=== PATIENT | female | born 1935 | race Caucasian/White ===

== ENCOUNTER 2020-05-11 12:58 | Outpatient (REF) | payer MEDICARE, SELFPAY ==
[2020-05-11 14:13] LABS: Hematocrit 38.7 % (37-47); Hemoglobin 13.2 g/dl (12.0-16.0); Mean Corpuscular HGB Conc 34.1 g/dl (31.0-35.0); Mean Corpuscular Volume 93.7 fL (80-98); Mean Platelet Volume 9.3 fL (9.4-12.3); Platelet Count 245 X10*3/uL (160-400); Red Blood Count 4.13 X10*6/uL (4.20-5.50); Red Cell Distribution Width 11.9 % (11.0-16.0); White Blood Count 6.6 X10*3/uL (4.8-10.8)
[2020-05-11 14:57] LABS: Alanine Aminotransferase 17 U/L (0-31); Albumin Level 4.2 g/dL (3.5-5.0); Alkaline Phosphatase 89 U/L (39-117); Anion Gap 17 (12-20); Aspartate Amino Transferase 21 U/L (5-31); Bilirubin Total 0.3 mg/dL (0.0-1.0); Blood Urea Nitrogen 28 mg/dL (9-16); Calcium 10.1 mg/dL (8.4-10.2); Carbon Dioxide 29 mmol/L (22-29); Chloride 99 mmol/L (96-108); Estimated Glomerular Filt Rate 35; Glucose Random 126 mg/dL (60-115); Potassium 4.1 mmol/L (3.3-5.1); Sodium 141 mmol/L (135-145); Total Protein 7.5 g/dL (6.5-8.0)
[2020-05-11 14:58] LABS: TSH reflex Free T4 0.11 uIU/mL (0.32-4.0)
== END 2020-05-11 12:59 | disposition home or self-care (01) ==
LOC: HO.HMGCLDS 12:58
PROVIDERS: PCP Internal Medicine; Visit Provider Internal Medicine
DX: E78.5 Hyperlipidemia, unspecified (principal); I10 Essential (primary) hypertension
CPT/HCPCS: 36415; 80053; 84439; 84443; 85027

== ENCOUNTER → 2023-11-03 10:18 | Outpatient (BNVA) | payer OTHER, SELFPAY | PROVIDERS: PCP Internal Medicine; Visit Provider Internal Medicine ==

== ENCOUNTER → 2024-04-11 09:44 | Outpatient (BNVA) | payer OTHER, SELFPAY | PROVIDERS: PCP Internal Medicine; Visit Provider Internal Medicine | DX: J40 Bronchitis, not specified as acute or chronic (principal); I10 Essential (primary) hypertension; I48.91 Unspecified atrial fibrillation | CPT/HCPCS: 99212 ==

== ENCOUNTER 2024-08-30 06:04 | Outpatient (REF) | payer OTHER, SELFPAY ==
[2024-08-30 10:13] LABS: MANUAL DIFF FLAG NO
[2024-08-30 10:23] LABS: Hemoglobin A1C 125.6126 umol/L; Total Hemoglobin (HGBA1C) 3217.6115 umol/L
[2024-08-30 10:41] LABS: Hematocrit 35.9 % (37.0-47.0); Hemoglobin 12.1 g/dl (12.0-16.0); Imm Gran Abs Auto 0.01 X10*3/uL (0.00-0.03); Imm Gran Pct Auto 0.2 % (0.0-0.4); Lymphocytes Absolute Auto 1.5 X10*3/uL (1.2-4.9); Mean Corpuscular HGB Conc 33.7 g/dl (31.0-35.0); Mean Corpuscular Hemoglobin 31.5 pg (27.0-33.0); Mean Corpuscular Volume 93.5 fL (80.0-98.0); NRBC Abs Auto 0.000 X10*3/uL (0.0-0.012); NRBC Pct Auto 0.0 /100WBC (0.0-0.2); Platelet Count 213 X10*3/uL (160-400); Red Blood Count 3.84 X10*6/uL (4.20-5.50); White Blood Count 4.9 X10*3/uL (4.8-10.8)
[2024-08-30 11:02] LABS: Alanine Aminotransferase 13 U/L (0-31); Albumin Level 3.8 g/dL (3.5-5.0); Alkaline Phosphatase 71 U/L (39-117); Anion Gap 14 (12-20); Aspartate Amino Transferase 24 U/L (5-31); Blood Urea Nitrogen 30 mg/dL (9-16); Calcium 9.5 mg/dL (8.4-10.2); Carbon Dioxide 27 mmol/L (22-29); Chloride 106 mmol/L (96-108); Estimated Glomerular Filt Rate 38; Potassium 4.1 mmol/L (3.3-5.1); Sodium 143 mmol/L (135-145); Total Protein 6.8 g/dL (6.5-8.0)
[2024-08-30 11:34] LABS: Free T4 (Free Thyroxine) 1.10 ng/dL (0.71-1.85)
== END 2024-08-30 06:05 | disposition home or self-care (01) ==
LOC: HO.HMGCLDS 06:04
PROVIDERS: PCP Internal Medicine; Visit Provider Internal Medicine
DX: Z00.00 Encounter for general adult medical examination without abnormal findings (principal); R73.9 Hyperglycemia, unspecified; I48.91 Unspecified atrial fibrillation; I10 Essential (primary) hypertension
CPT/HCPCS: 36415; 80053; 83036; 84439; 84443; 84481; 85025

== ENCOUNTER 2024-08-31 08:52 | Outpatient (AMB) | payer MEDICARE, SELFPAY ==
--- OUTSIDE RECORDS SUMMARY | 2024-06-08 10:00 | XMS_ITS ---
Author Organization [facility] Address [address] [place] [address] Care Team Providers Care Tool Builder Name Role Phone Kamryn Dominguez MD Primary Care Provider Michelle Fournier [phone] Allergies Allergen (clinical drug ingredient) Drug/Non Drug [...] Active Encounters Encounter Location Date Provider Diagnosis [facility] [address] [place] [address] 06/08/2024 Michelle Everett Plan Of Treatment No Information Progress Notes * Sarina DONALDB:1935 ([age] yo F)Acc No.[id number]:06/08/2024 Progress Note Patient: Eliane MACARIO Provider: Ellis Everett DPM :1935 A ge:88 Y S ex:Female Date:06/08/2024 Address:[address] [place] [address] , [place] , [id number] Pcp:Kamryn Dmoinguez MD Subjective: * Chief Complaints: * * [...] Pending * Provider: Ellis Everett DPM Date: 0 06/08/2024 Generated for Олег edwards/Brad/Avilaitting on: 0 08/31/2024 09:05 AM EDT
[2024-08-31 08:54] VITALS: BP 120/74; PULSE 50; RESP 18; TEMP 36.8; O2SAT 99; BMI 33.6
--- NOTE | 2024-08-31 08:54 | A.OFFPC_ITS ---
Vital Signs 08/31/24 08:54 Height 5 ft Weight 172 lb BMI 33.6 BP 120/74 Blood Pressure Location Rt brachial Position Sitting Respiration 18 Pulse 50 Pulse Source Pulse Oximeter Temp 98.2 F Temp Source Oral Pulse Oximetry (%) 99 Oxygen Delivery Method Room Air Intake Visit Reasons: 6 months f/up Intake Note: Pt is here today for 6 months follow up visit. Allergies aspirin Allergy (Unknown, Verified 04/18/24 16:15) Facial Swelling Medication List - Last Reconciled 08/31/24 by Kamryn Dominguez MD Eliquis (apixaban) 2.5 mg PO BID NS estradiol 0.01%(0.1mg/gram) pea size to urethra vaginally daily; glucosamine HCl 1,000 mg PO DAILY hydrochlorothiazide 25 mg PO DAILY irbesartan 300 mg PO DAILY meclizine 25 mg PO BID metoprolol succinate ER 50 mg PO DAILY oxybutynin chloride ER 5 mg PO DAILY Tobacco use date assessed: 08/31/24 Fall risk assessment: No Falls in past year Last assessed Fall Risk: 08/31/24 Dental Screening Dental Screen Date: 02/23/24 HPI 6 months f/up HPI Details Patient presents for the follow-up on chronic kidney disease stage 3, hypertension paroxysmal AFib anticoagulated on Eliquis. Patient complains of the swelling in the right submandibular region for few weeks. She denies any pain fever chills difficulty swallowing. [facility] Medical History (Updated 08/31/24 @ 09:31 by Kamryn Dominguez MD) A-fib Bilateral hand pain Dysuria CKD (chronic kidney disease) stage 3, GFR 30-59 ml/min Bilateral carotid bruits Subconjunctival bleed Vertigo HTN (hypertension) Osteoarthritis Hyperlipidemia Vitamin D deficiency Hyperparathyroidism Goiter Surgical History H/O parathyroidectomy History of knee replacement Family History Father No problems noted. Mother No problems noted. Social History Housing: House Alcohol intake: never Patient Tobacco Use Status: Never used Tobacco e-Cigarette/Vaping Use: Never Used service: No Current occupational status: retired Cognitive needs: No Hearing needs: No Vision needs: Yes Questionnaire PHQ-9 Over the last 2 weeks, how often have you been bothered by any of the following problems? 1. Little interest or pleasure in doing things: not at all 2. Feeling down, depressed, or hopeless: not at all 3. Trouble falling or staying asleep, or sleeping too much: not at all 4. Feeling tired or having little energy: not at all 5. Poor appetite or overeating: not at all 6. Feeling bad about yourself - or that you are a failure or have let yourself or your family down: not at all 7. Trouble concentrating on things, such as reading the newspaper or watching television: not at all 8. Moving or speaking so slowly that other people could have noticed. Or the opposite - being so fidgety or restless that you have been moving around a lot more than usual: not at all 9. Thoughts that you would be better off or of hurting yourself in some way: not at all Total score: 0 Depression Screening Interpretation: Negative Depression Screening Done: Yes 85341 - PHQ-9 Billing: Yes Source: Developed by Drs. Raciel Cox, Bev Guevara, Kareem Carter and colleagues, with an educational uyen from [employer]. Thrive Questionnaire Date Thrive assessed: 08/31/24 I am a: Patient What is your living situation today?: I have a steady place to live Within the past 12 months, did the food you bought not last and you didn't have the money to get more?: Never true Within the past 12 months, did you worry whether your food would run out before you got money to buy more?: Never true Do you have trouble paying for medicines?: No Do you have trouble getting transportation to medical appointments?: No Do you have trouble paying your heating and electricity bill?: No Do you have trouble taking care of your child, family member or friend?: No Do you have trouble with day-to-day activities such as bathing, preparing meals, shopping, managing finances, etc.?: No Are you currently unemployed and looking for a job?: I choose not to answer this question Are you interested in more education?: I choose not to answer this question Please select the resources that you would like help with: None Currently or been in a relationship where the following occur: I choose not to answer THRIVE Score: 0 AUDIT C Alcohol Use Questionnaire (AUDIT-C) 1. How often do you have a drink containing alcohol?: Never 3. How often do you have six or more drinks on one occasion?: Never Total Score: 0 SCHUYLER-7 AMB Questionnaire SCHUYLER-7 Date SCHUYLER - 7 assessed: 02/23/24 Source: Developed by Drs. Raciel Cox, Bev Guevara, Kareem Carter and colleagues, with an educational uyen from [employer]. Review of Systems Const All systems reviewed & are unremarkable except as noted in HPI and below Eyes Reports no additional complaints ENT Reports no additional complaints Card Reports no additional complaints Resp Reports no additional complaints GI Reports no additional complaints Reports no additional complaints Physical exam (Primary Care) Vital Signs: Last Vital Signs Temp 98.2 F 08/31/24 08:54 Pulse 50 08/31/24 08:54 Resp 18 08/31/24 08:54 BP 120/74 08/31/24 08:54 Pulse Ox 99 08/31/24 08:54 Oxygen Delivery Method Room Air 08/31/24 08:54 BMI result Body Mass Index 33.6 Tobacco/Smoking Status: Tobacco use Status Tobacco use date assessed 08/31/24 08/31/24 09:11 Patient Tobacco Use Status Never used Tobacco 08/31/24 08:54 e-Cigarette/Vaping Use Never Used 08/31/24 08:54 PHQ-9: PHQ-9 Score PHQ-9: Total score 0 08/31/24 09:11 Depression Screening Interpretation: Negative Thrive Assessment: Date of Thrive Assessment Date Thrive assessed 08/31/24 08/31/24 08:54 Currently or been in a relationship where the following occur: I choose not to answer Const General: no acute distress HENMT Head: Yes normal to inspection Throat: Yes posterior oropharynx normal Eyes General: appearance normal, both eyes and all related structures Neck Other: There is a palpable fullness in the right submandibular region nontender no erythema warmth Neck: Yes supple Resp Effort & Inspection: normal respiratory effort Auscultation: clear to auscultation bilaterally Cardio Rate: bradycardic Rhythm: regular rhythm Heart sounds: S1 normal heart sound present and S2 normal heart sound present GI Inspection: Yes normal to inspection Palpation (GI): Soft to palpation Percussion: Yes normal to percussion Auscultation: normal bowel sounds Coding Level of Care Code Est Pt Level 4 (22895) Complex EM visit Add On G2211 Diagnoses Cervical lymphadenopathy R59.0 A-fib I48.91 HTN (hypertension) I10 Hyperlipidemia E78.5 CKD (chronic kidney disease) stage 3, GFR 30-59 ml/min N18.30 Additional Codes PHQ-9 - 55942 - PHQ-9 Billing: Yes ([id number]) Assessment & Plan Assessment & Plan (1) Cervical lymphadenopathy: Code(s): R59.0 - Localized enlarged lymph nodes Category: Medical Plan: Obtain soft tissue ultrasound to evaluate (2) A-fib: Comment: paroxysmal ,Holter negative and ECHO EF 56%, mild 10/2023 Code(s): I48.91 - Unspecified atrial fibrillation Category: Medical Plan: EKG showed sinus bradycardia at 47 poor R progression in V2 through V4 no ST-T changes. Decrease metoprolol to 25 mg follow-up in 1 week, continue Eliquis for anticoagulation (3) HTN (hypertension): Code(s): I10 - Essential (primary) hypertension Category: Medical Plan: For the episodes of lightheadedness and low blood pressure irbesartan will be decreased to 150 mg a day. (4) Hyperlipidemia: Code(s): E78.5 - Hyperlipidemia, unspecified Category: Medical Plan: Continue statin (5) CKD (chronic kidney disease) stage 3, GFR 30-59 ml/min: Code(s): N18.30 - Chronic kidney disease, stage 3 unspecified Category: Medical Plan: Avoid nephrotoxins monitor renal function Orders: Orders US soft tiss head and/or neck Today R59.0 - Localized enlarged lymph nodes AMB EKG-In Office Today I10 - Essential (primary) hypertension, I48.91 - Unspecified atrial fibrillation Medications: New irbesartan 150 mg PO DAILY 90 tabs 3RF Refilled estradiol 0.01%(0.1mg/gram) pea size to urethra vaginally daily; 42.5 grams 3RF Eliquis (apixaban) 2.5 mg PO BID 180 tabs 3RF NS metoprolol succinate ER 50 mg PO DAILY 90 tabs 3RF Discontinued azithromycin Discontinued Reason: Patient Completed Course For 250 mg dose pack: take 500 mg today (day 1), then 250 mg for 4 days (days 2-5) PO 6 tabs 0RF
--- OUTSIDE RECORDS SUMMARY | 2024-08-31 09:05 | XMS_ITS | Clinical Summary ---
Author Organization [employer] [facility] Address [address] [facility] [address] [place] [address] Care Team Providers Care Track Hoe Operator Name Role Phone Unavailable Primary Care Provider Unavailabl e Allergies Active Allergy Reactions Criticality Noted Date Comments Aspirin 06/01/2024 Medications oxybutynin XL (Ditropan-XL) 5 MG 24 hr tablet Take 1 tablet by mouth Once per day. 05/23/2024 Active metoprolol succinate XL (Toprol-XL) 100 MG 24 hr tablet Take 1 tablet by mouth Once per day. 11/21/2023 Active Eliquis 2.5 MG tablet Take 1 tablet by mouth 2 times daily. 02/23/2024 Active glucosamine-yamini droitin 500-400 MG tablet Take 1 tablet by mouth 3 times daily. Active calcium citrate (Calcitrate) 950 (200 Ca) MG tablet Take 950 mg by mouth Once per day. Active magnesium lactate CR (Magtab) 84 MG (7MEQ) ER tablet Take 84 mg by mouth Once per day. Active omega-3 (FISH OIL) 300 MG capsule Take by mouth Once per day. Active Encounters Date Type Department Care Team Description 07/20/2024 Telephone [facility] [address] [place] [phone] Laura Moore 06/01/2024 1:00 PM EDT Office Visit [facility] [address] [place] [phone] Laura Moore Periodontal disease (Primary Dx); Dental caries from Last 3 Months Social History Tobacco Use Types Packs/Day Years Used Date Smoking Tobacco: Former Cigarettes Smokeless Tobacco: Never Tobacco Cessation:Counseling Given: Not Answered Comments Unknown Sex and Gender Information Value Date Recorded Sex Assigned at Female 04/26/2024 8:21 AM EDT Legal Sex Female 8:17 AM EDT Gender Identity Female 04/26/2024 8:21 AM EDT Sexual Orientation Choose not to disclose 2024 8:21 AM EDT Last Filed Vital Signs Vital Sign Reading Time Taken Comments Blood Pressure 116/50 06/01/2024 1:10 PM EDT Pulse 58 06/01/2024 1:10 PM EDT Temperature - - Respiratory Rate - - Oxygen Saturation - - Inhaled Oxygen Concentration - - Weight - - Height - - Body Mass Index - - Plan of Treatment Upcoming Encounters Date Type Department Care Team (Late st Contact Info) Description 10/06/2024 2:00 PM EDT Office Visit [facility] [address] [place] [phone] Laura Moore [address] [place] [phone] 10/11/2024 9:00 AM EDT Office Visit [facility] [address] [place] [phone] Laura Moore [address] [place] [phone] Health Maintenance Due Date Last Done Comments Dental Oral Exam 1935 Depression Screening 1935 SDOH Screening 1935 Alcohol/Substance Use Screening 1946 Zoster Vaccines (1 of 2) 1984 Pneumococcal Vaccine: 50+ Years (2 of 2 - PPSV23) 01/03/2018 01/03/2017 COVID-19 Vaccine ( season) 2024 12/02/2023, 06/03/2021, 11/16/2020, Additional history exists Influenza Vaccine (#1) 2024 , 10/30/2022, 12/04/2021, Additional history exists Dental Prophylaxis 12/02/2024 06/01/2024 Tobacco Screening 06/01/2025 06/01/2024 Dental X-Ray: Bitewings 06/02/2025 06/01/2024 DTaP/Tdap/Td Vaccines (2 - Td or Tdap) 01/03/2027 01/03/2017 Dental X-Ray: Full Mouth 06/03/2027 06/01/2024 RSV Patients and Patients Aged 60 years or older Completed 10/30/2022 HIB Vaccines Aged Out No longer eligi ble based on patient's age to complete this topic HPV Vaccines Aged Out No longer eligi ble based on patient's age to complete this topic Hepatitis A Vaccines Aged Out No long er eligible based on patient's age to complete this topic Hepatitis B Vaccines Aged Out No long er eligible based on patient's age to complete this topic IPV Vaccines Aged Out No longer eligi ble based on patient's age to complete this topic Meningococcal B Vaccine Aged Out No l onger eligible based on patient's age to complete this topic Meningococcal Vaccine Aged Out No renetta trevor eligible based on patient's age to complete this topic RSV under 20 months Aged Out No longe r eligible based on patient's age to complete this topic Rotavirus Vaccines Aged Out No longer eligible based on patient's age to complete this topic Procedures Procedure Name Priority Date/Time Associated Diagnosis Comments PROPHYLAXIS - ADULT Routine 06/01/2024 1 :00 PM EDT INTRAORAL - COMPLETE SERIES OF RADIOGRAPHIC IMAGES Routine 06/01/2024 1:00 PM EDT 2 ROOT CANAL Routine 06/01/2024 12:00 AM EDT 5 ROOT CANAL Routine 06/01/2024 12:00 AM EDT 12 DO AMALGAM FILLING Routine 06/01/2024 12:00 AM EDT 19 PONTIC - CAST PREDOMINANTLY BASE METAL Routine 06/01/2024 12:00 AM EDT 18 ABUTMENT SUPPORTED CAST METAL CROWN (PREDOMINANTLY BASE METAL) Routine 06/01/2024 12:00 AM EDT 13 PFM CROWN Routine 06/01/2024 12:00 AM EDT 4 PONTIC - PORCELAIN FUSED TO PREDOMINANTLY BASE METAL Routine 06/01/2024 12:00 AM EDT 3 PONTIC - PORCELAIN FUSED TO PREDOMINANTLY BASE METAL Routine 06/01/2024 12:00 AM EDT 6 ABUTMENT SUPPORTED CAST METAL CROWN (PREDOMINANTLY BASE METAL) Routine 06/01/2024 12:00 AM EDT 5 ABUTMENT SUPPORTED CAST METAL CROWN (PREDOMINANTLY BASE METAL) Routine 06/01/2024 12:00 AM EDT 2 ABUTMENT SUPPORTED CAST METAL CROWN (PREDOMINANTLY BASE METAL) Routine 06/01/2024 12:00 AM EDT 32 EXTRACTION Routine 06/01/2024 12:00 AM EDT 31 EXTRACTION Routine 06/01/2024 12:00 AM EDT 30 EXTRACTION Routine 06/01/2024 12:00 AM EDT 29 EXTRACTION Routine 06/01/2024 12:00 AM EDT 21 EXTRACTION Routine 06/01/2024 12:00 AM EDT 20 EXTRACTION Routine 06/01/2024 12:00 AM EDT 19 EXTRACTION Routine 06/01/2024 12:00 AM EDT 17 EXTRACTION Routine 06/01/2024 12:00 AM EDT 16 EXTRACTION Routine 06/01/2024 12:00 AM EDT 15 EXTRACTION Routine 06/01/2024 12:00 AM EDT 14 EXTRACTION Routine 06/01/2024 12:00 AM EDT 3 EXTRACTION Routine 06/01/2024 12:00 AM EDT 4 EXTRACTION Routine 06/01/2024 12:00 AM EDT 1 EXTRACTION Routine 06/01/2024 12:00 AM EDT from Last 3 Months Insurance DENTAL - [facility]
== END 2024-08-31 09:47 | disposition home or self-care (01) ==
PROVIDERS: PCP Internal Medicine; Visit Provider Internal Medicine
DX: R59.0 Localized enlarged lymph nodes (principal); I48.91 Unspecified atrial fibrillation; I10 Essential (primary) hypertension; E78.5 Hyperlipidemia, unspecified; N18.30 Chronic kidney disease, stage 3 unspecified

== ENCOUNTER → 2024-08-31 08:52 | Outpatient (BNVA) | payer MEDICARE, SELFPAY | PROVIDERS: PCP Internal Medicine; Visit Provider Internal Medicine | DX: I12.9 Hypertensive chronic kidney disease with stage 1 through stage 4 chronic kidney disease, or unspecified chronic kidney disease (principal); I48.0 Paroxysmal atrial fibrillation; N18.30 Chronic kidney disease, stage 3 unspecified; R59.0 Localized enlarged lymph nodes; E78.5 Hyperlipidemia, unspecified; Z79.01 Long term (current) use of anticoagulants | CPT/HCPCS: 96127; 99212 ==

== ENCOUNTER 2024-10-21 13:53 | Outpatient (REF) | payer OTHER, SELFPAY ==
--- OUTSIDE RECORDS SUMMARY | 2024-04-29 08:00 | XMS_ITS ---
Author Organization [facility] Address [address] [place] [address] Care Team Providers Care Steamer Operator Name Role Phone Alberto RAMOS, Kamryn Primary Care Provider Unavaila Michelle Parker Unavailable [phone] Mike Fierro [phone] Encounters Encounter Location Date Provider Diagnosis [facility] [address] [place] [address] 04/29/2024 Mike Fieror Plan Of Treatment No Information Progress Notes * Sarina MOONB:1935 ([age] yo F)Acc No.[id number]:04/29/2024 Progress Note Patient: Eliane MACARIO Provider: Markus Fierro DPM :1935 A ge:88 Y S ex:Female Date:04/29/2024 Address:[address] [place] [address] [id number] Pcp:Kamryn Dominguez MD Subjective: * Chief Complaints: * * Medical History: Objective: * Vitals: Assessment: Plan: * Treatment: * Images: * The named appointment provid er may or may not be the originator of this progress note, and it is not deemed complete until electronically signed by the appointment provider. Sign off status: Pending * Provider: Markus Fierro DPM Date: 0 04/29/2024 Generated for Олег edwards/Brad/eTransmitting on: 0 10/21/2024 02:23 PM EDT
--- OUTSIDE RECORDS SUMMARY | 2024-05-10 05:00 | XMS_ITS ---
Author Organization [facility] Address [address] [place] [address] Care Team Providers Care Bowling Ball Marker Name Role Phone Alberto RAMOS, Kamryn Primary Care Provider UnavailMichelle Magaña Unavailable [phone] Nidia Maravilla Unavailable [phone] Lama Encounters Encounter Location Date Provider Diagnosis [facility] [address] [place] [address] 05/10/2024 Nidia Maravilla Plan Of Treatment No Information Progress Notes * Sarina MOONB:1935 ([age] yo F)Acc No.[id number]:05/10/2024 Progress Note Patient: Eliane MACARIO Provider: Joey Maravilla DPM :1935 A ge:88 Y S ex:Female Date:05/10/2024 Address:[address] [place] [address] [place] Pcp:Kamryn Dominguez MD Subjective: * Chief Complaints: * [address] Lama. * Medical History: Objective: * Vitals: Assessment: Plan: * Treatment: * Images: * The named appointment provid er may or may not be the originator of this progress note, and it is not deemed complete until electronically signed by the appointment provider. Sign off status: Pending * Provider: Joey Maravilla DPM Date: 0 05/10/2024 Generated for Олег edwards/Brad/Sriramsmitting on: 0 10/21/2024 02:23 PM EDT
--- OUTSIDE RECORDS SUMMARY | 2024-06-08 10:00 | XMS_ITS ---
Author Organization [facility] Address [address] [place] [address] Care Team Providers Care Contracting Analyst Name Role Phone Kamryn Dominguez MD Primary Care Provider Michelle Fournier [phone] Allergies Allergen (clinical drug ingredient) Drug/Non Drug Allergy documented on EMR Reaction Allergy Type Onset Date Status aspirin Aspirin Unknown Drug Allergy Active Medications Medication SIG (Take, Route, Frequency, Duration) Notes Start Date End Date Status oxyBUTYnin Chloride ER 5 MG TK 1 T PO QD Oral; Duration: 90 Active Zinc Active Doxycycline Monohydrate 100 MG 1 capsule Orally Once a day; Duration: 10 days Active Calcium Active Centrum Adults Activ e Omeprazole Active Metoprolol Succinate 100 MG 1 capsule Or ally Once a day; Duration: 30 day(s) Active Magnesium Active Glucosource Lancets Active Meloxicam 7.5 MG 1 tablet Orally Once a day; Duration: 30 day(s) Active Fish Oil Active Encounters Encounter Location Date Provider Diagnosis [facility] [address] [place] [address] 06/08/2024 Michelle Everett Plan Of Treatment No Information Progress Notes * Sarina DONALDB:1935 ([age] yo F)Acc No.[id number]:06/08/2024 Progress Note Patient: Eliane MACARIO Provider: Ellis Everett DPM :1935 A ge:88 Y S ex:Female Date:06/08/2024 Address:[address] [place] [address] , [place] , [id number] Pcp:Kamryn Dominguez MD Subjective: * Chief Complaints: * * Medical History: A rthritis, High blood pressure, Bone implants/screws. * Medications: T aking Calcium , Taking Centrum Adults , Taking Fish Oil , Taking Glucosource Lancets , Taking Meloxicam 7.5 MG Tablet 1 tablet Orally Once a day , Taking Metoprolol Succinate 100 MG Capsule ER 24 Hour Sprinkle 1 capsule Orally Once a day , Taking Magnesium , Taking Omeprazole , Taking oxyBUTYnin Chloride ER 5 MG Tablet Extended Release 24 Hour TK 1 T PO QD Oral , Taking Zinc , Taking Doxycycline Monohydrate 100 MG Capsule 1 capsule Orally Once a day * Allergies: A spirin. Objective: * Vitals: Assessment: Plan: * Treatment: * Images: * The named appointment provid er may or may not be the originator of this progress note, and it is not deemed complete until electronically signed by the appointment provider. Sign off status: Pending * Provider: Ellis Everett DPM Date: 06/08/2024 Generated for Олег edwards/Brad/Avilaitting on: 0 10/21/2024 02:23 PM EDT
--- OUTSIDE RECORDS SUMMARY | 2024-08-12 05:00 | XMS_ITS ---
Author Organization [facility] Address [address] [facility] [place] [address] Care Team Providers Care Rn Complex Care Name Role Phone Alberto RAMOS, Kamryn Primary Care Provider Michelle Fournier [phone] Encounters Encounter Location Date [facility] [address] [place] [phone] 08/12/2024 Michelle Everett Plan Of Treatment No Information Progress Notes * Emily MOONaDOB:1935 ([age] yo F)Acc No.[id number]:08/12/2024 Progress Note Patient: Eliane MACARIO Provider: Ellis Everett DPM :1935 A ge:88 Y S ex:Female Date:08/12/2024 Address:[address] [place] [address] [place] Pcp:Kamryn Dominguez MD Subjective: * Chief Complaints: * * Medical History: Objective: * Vitals: Assessment: Plan: * Treatment: * Images: * The named appointment provid er may or may not be the originator of this progress note, and it is not deemed complete until electronically signed by the appointment provider. Sign off status: Pending * Provider: Ellis Everett DPM Date: 0 08/12/2024 Generated for Printi ng/Faxing/eTransmitting on: 0 10/21/2024 02:23 PM EDT
--- OUTSIDE RECORDS SUMMARY | 2024-09-01 10:45 | XMS_ITS ---
Author Organization [facility] Address [address] [facility] [place] [address] Care Team Providers Care Materials Branch Chief Name Role Phone Alberto RAMOS, Kamryn Primary Care Provider Unavaila Michelle Parker Unavailable [phone] Mike Fierro [phone] Encounters Encounter Location Date Provider Diagnosis [facility] [place] [address] [place] [phone] 09/01/2024 Mike Fierro Plan Of Treatment No Information Progress Notes * Sarina DONALDB:1935 ([age] yo F)Acc No.[id number]:09/01/2024 Progress Note Patient: Eliane MACARIO Provider: Markus Fierro DPM :1935 A ge:88 Y S ex:Female Date:09/01/2024 Address:[address] [place] [address] [phone] Pcp:Kamryn Dominguez MD Subjective: * Chief Complaints: * * Medical History: Objective: * Vitals: Assessment: Plan: * Treatment: * Images: * The named appointment provid er may or may not be the originator of this progress note, and it is not deemed complete until electronically signed by the appointment provider. Sign off status: Pending * Provider: Markus Fierro DPM Date: 0 09/01/2024 Generated for Олег edwards/Brad/eTransmitting on: 0 10/21/2024 02:23 PM EDT
--- NOTE | ~2024-10-21 | US_ITS ---
CLINICAL HISTORY: R59.0 - Localized enlarged lymph nodes --- Additional Notes or Special Instructions: R submandibular adenopathy US neck nonvascular Comparison: None Findings: Sonographic evaluation in the area of clinical concern right submandibular region demonstrated 2 small lymph nodes with fatty hilum intact cortices and central flow measuring 8 x 5 x 5 mm and 6 x 5 x 5 mm. Impression: Morphologically benign appearing right submandibular lymph nodes This document has been electronically signed by: Amado Andrade MD on 10/22/2024 18:32:32
--- OUTSIDE RECORDS SUMMARY | 2024-10-21 14:23 | XMS_ITS | Encounter Summary ---
Author Organization [facility] Address [address] [facility] 7[address] [place] [address] Care Team Providers Care Manager Investment Banking Name Role Phone Unavailable Primary Care Provider Unavailabl e Encounter Details Date Type Department Care Team (Late st Contact Info) Description 10/19/2024 Telephone [facility]ULT [facility] [address] [place], [place] [phone] Gianni Evans DMD [address] [place] [address] Social History Tobacco Use Types Packs/Day Years Used Date Smoking Tobacco: Former Cigarettes Smokeless Tobacco: Never Comments Unknown Sex and Gender Information Value Date Recorded Sex Assigned at Female 04/26/2024 8:21 AM EDT Legal Sex Female 8:17 AM EDT Gender Identity Female 04/26/2024 8:21 AM EDT Sexual Orientation Choose not to disclose 2024 8:21 AM EDT documented as of this encounter Miscellaneous Notes * Telephone Encounter - Apolonia Mckeon - 10/19/2024 1:08 PM EDT Called [facility] and confirmed with robert that she will reach out to pt and see why the appt was cancelled and rs visit. documented in this encounter Plan of Treatment Upcoming Encounters Date Type Department Care Team (Late st Contact Info) Description 10/26/2024 3:00 PM EDT Office Visit [facility] ADULT [facility]AL [address] [place], [place] [phone] Gianni Evans DMD [address] [place] [address] documented as of this encounter Visit Diagnoses Not on filedocumented in this encounter
--- OUTSIDE RECORDS SUMMARY | 2024-10-21 14:23 | XMS_ITS | Patient Health Record ---
Author Organization [facility] Address [address] [facility] [place] [address] Care Team Providers Care Instructor Ballroom Dancing Name Role Phone Kamryn Dominguez MD Primary Care Provider Unavaila Michelle Parker Unavailable [phone] Mike Fierro Unavailable [phone] Nidia Maravilla Unavailable [phone] Allergies Allergen (clinical drug ingredient) Drug/Non Drug Allergy documented on EMR Reaction Allergy Type Onset Date Status aspirin Aspirin Unknown Drug Allergy Active Reason For Referral No Information Medications Medication SIG (Take, Route, Frequency, Duration) Notes Start Date End Date Status oxyBUTYnin Chloride ER 5 MG TK 1 T PO QD Oral; Duration: 90 Active Zinc Active Doxycycline Monohydrate 100 MG 1 capsule Orally Once a day; Duration: 10 days Active Calcium Active Omeprazole Active Metoprolol Succinate 100 MG 1 capsule Or ally Once a day; Duration: 30 day(s) Active Magnesium Active Centrum Adults Activ e Fish Oil Active Glucosource Lancets Active Meloxicam 7.5 MG 1 tablet Orally Once a day; Duration: 30 day(s) Active Immunizations Vaccine Route Administration Date Status Comme nts Influenza Unknown 11/15/2021 Administered COVID-19 Pfizer BioNTech Vaccine Unknown 11/15/2020 Administered 1st 03/26/2020 2nd 04/17/2020 Social History Tobacco Use: Social History Observation Description Date Details (start date - stop date) Former Smoker NA - NA Tobacco Use/Smoking Question Answer Notes Are you a: former smoker Additional Findings: Tobacco Non-User Current no n-smoker Alcohol Screen Question Answer Notes Did you have a drink containing alcohol in the p ast year? No Points 0 Interpretation Negative Tobacco use other than smoking: Question Answer Notes Are you an other tobacco user? No Problems Problem Type SNOMED Code ICD Code Onset Dates Problem Status W/U Status Risk Notes Problem Bilateral atherosclerosis of arteries of lower limbs (disorder) ([id number] ) Atherosclerosis of [place] artery of both lower extremities, with unspecified presence of clinical manifestation (I70.203) Active confirmed Q7(A), Q8(2B), Q9(1B,2 C) Vital Signs Blood pressure diastolic 70 mm Hg 02/04/2024 Height 5ft in 02/04/2024 Blood pressure systolic 120 mm Hg 02/04/2024 Weight 184 lbs 02/04/2024 BMI 35.93 kg/m2 02/04/2024 Procedures Procedure Date Ordered Date Performed Result Body Sit e 46885-KKBCVPC NAIL, 6 OR MORE 02/04/2024 N/A 60715-UDAW SKIN LESIONS, 2 TO 4 02/04/2024 N/A Encounters Encounter [facility] Date [facility] [address] 02/04/2024 Michelle Everett Atherosclerosis of [place] artery of both lower extremities, with unspecified presence of clinical manifestation I70.203 ; Tinea unguium B35.1 ; Pain in right toe(s) M79.674 and Pain in left toe(s) M79.[address] [address] 04/26/2024 [facility] [address] [address] 06/06/[address] [address] 08/30/2024 Michelle Everett Assessments Encounter Date Diagnosis (ICD Code) Assessment Notes Treatment Notes Treatment Clinical Notes Section Notes 02/04/2024 Atherosclerosis of [place] artery of both lower extremities, with unspecified presence of clinical manifestation (ICD-10 - I70.203) Q7(A), Q8(2B), Q9(1B,2C) 02/04/2024 Tinea unguium (ICD-10 - B35.1) 02/04/2024 Pain in right toe(s) (ICD-10 - M79.674) 02/04/2024 Pain in left toe(s) (ICD-10 - M79.675) Plan Of Treatment Pending Test Test Name Order Date X ray : Foot, right 3V 06/23/2019 53633-AJMKZZE NAIL, 6 OR MORE 02/04/2024 93383-TFYD SKIN LESIONS, 2 TO 4 02/04/20 24 74146-JKUP SKIN LESIONS, 2 TO 4 06/23/19 20 09653-NRLB SKIN LESIONS, 2 TO 4 10/03/19 20 44988-LNPD SKIN LESIONS, 2 TO 4 01/02/20 20 45828-UJLU SKIN LESIONS, 2 TO 4 04/11/19 21 04197-IBAV SKIN LESIONS, 2 TO 4 07/12/19 21 29793-ACSI SKIN LESIONS, 2 TO 4 12/20/19 21 78727-MUVB SKIN LESIONS, 2 TO 4 04/15/19 22 Insurance Providers Payer Name Payer Address Payer Phone Subscriber Number Group Number Insured Name Patient Relationship to Insured Coverage Start Date Coverage End Date [id number] [address] [place] [address] [id number] Eliane Bautista Self - patient is the insured Medical (General) History Medical History History ICD Code Arthritis High blood pressure Bone implants/screws Surgical History Surgery Date(Month/Year) gall bladder bunionectomy kidney stones knee surgery ovarian surgery parathyroidectomy L carpal tunnel surgery R carpal tunnel surgery 12/2021
--- OUTSIDE RECORDS SUMMARY | 2024-10-21 14:23 | XMS_ITS | Clinical Summary ---
Author Organization [facility] Address [address] [facility] [address] [place] [address] Care Team Providers Care Technical Project Lead Name Role Phone Unavailable Primary Care Provider [...] Take by mouth Once per day. Active Active Problems No known active problems Encounters Date Type Department Care Team Description 10/19/2024 Telephone [facility] ADULT DENTAL [address] [place] [address] Gianni Evans DMD 10/19/2024 Telephone [facility] [address] [place] [address] Gianni Evans DMD 10/06/2024 Telephone [facility] [address] [place], [place] [phone] Laura Moore 09/29/2024 3:30 PM EDT Office Visit [facility] ADULT DENTAL [address] [place] [address] Gianni Evans DMD Periodontal disease (Primary Dx); Dental caries 09/29/2024 Telephone [facility] [address] [place] [address] Gianni Evans DMD from Last 3 Months Social History Tobacco [...] Description 10/26/2024 3:00 PM EDT Office Visit [facility] ADULT D[facility] [address] [place] [address] Gianni Evans DMD [address] [place] [address] Health Maintenance Due Date Last Done Comments Dental Oral Exam 1934 Depression Screening 1934 SDOH Screening 1934 Alcohol/Substance Use Screening 1946 Zoster Vaccines (1 of 2) 1984 Pneumococcal Vaccine: 50+ Years (2 of 2 - PPSV23) 01/03/2018 01/03/2017 COVID-19 Vaccine ( season) 2024 12/02/2023, 06/03/2021, 11/16/2020, Additional history exists Influenza Vaccine (#1) 2024 , 10/30/2022, 12/04/2021, Additional history exists Dental Prophylaxis 12/02/2024 06/01/2024 Dental X-Ray: Bitewings 06/02/2025 06/01/2024 Tobacco Screening 09/29/2025 09/29/2024 DTaP/Tdap/Td Vaccines (2 - Td or Tdap) [...] Procedure Name Priority Date/Time Associated Diagnosis Comments INTRAORAL - PERIAPICAL FIRST RADIOGRAPHIC IMAGE Routine 09/29/2024 3:30 PM EDT Periodontal disease Dental caries LIMITED ORAL EVALUATION - PROBLEM FOCUSED Routine 09/29/2024 3:30 PM EDT Periodontal disease Dental caries PROPHYLAXIS - ADULT Routine 06/01/2024 1 :00 PM EDT INTRAORAL - COMPLETE SERIES OF RADIOGRAPHIC IMAGES Routine 06/01/2024 1:00 PM EDT from Last 3 Months or Most Recently Relevant to Health Maintenance Insurance DENTAL - [facility] [employer] [place] [id number]
--- OUTSIDE RECORDS SUMMARY | 2024-10-21 14:23 | XMS_ITS | Encounter Summary ---
Author Organization [facility] Address [address] [facility] [address] [place] [address] Care Team Providers Care Beck Tender Name Role Phone Unavailable Primary Care Provider Unavailabl e Encounter Details Date Type Department Care Team (Late st Contact Info) Description 10/19/2024 Telephone [facility] ADULT DENT[facility] [address] [place] [address] Gianni Evans, ELMER [address] [place], [place] [phone] Social History Tobacco Use Types Packs/Day Years [...] Telephone Encounter - Apolonia Mckeon - 10/19/2024 12:49 PM EDT PT is calling bc her appt for tm was cancelled due to medical clearance saying she has to stop meds3 days before extraction. But pt says the medical clearance was already there days ago when the appt was made and the pt stopped her meds days before getting ready for tm. Pt is upset bc she stopped meds for no reason when they already told her the clearance was there. Please call pt back today before 2;30 bc daughter will be sleeping for machinist 2nd shift and can't help her make appt. cs documented in this encounter Plan of Treatment Upcoming Encounters Date Type Department Care Team (Late st Contact Info) Description 10/26/2024 3:00 PM EDT [facility] Visit [facility] [address] [place] [address] Gianni Evans, DMD [address] [place] [address] documented as of this encounter Visit Diagnoses Not on filedocumented in this encounter
== END 2024-10-21 13:54 | disposition home or self-care (01) ==
LOC: HO.HMGCX 13:53
PROVIDERS: PCP Internal Medicine; Visit Provider Internal Medicine
DX: R59.0 Localized enlarged lymph nodes (principal)
CPT/HCPCS: 76536